=== PATIENT | male | born 1950 | race Caucasian/White ===

== ENCOUNTER 2024-05-14 19:07 | Inpatient (IN) | payer OTHER ==
[~2024-05-14 19:07] MED LIST: ALBUTEROL SO4 2.5/IPRATROPIUM 0.5 INH SOL 3 ML VIAL.NEB. NEB PRN
[2024-05-14 20:04] VITALS: BMI 28.2
[2024-05-14 21:41] LABS: BASO % 1.2 % (0-2.0); HEMATOCRIT 42.7 % (35.4-49); HEMOGLOBIN 14.4 GM/dL (11.7-16.9); LYMPH % 16.3 % (8-40); MCH 30.8 pg (25.7-33.7); MCHC 33.7 g/dl (32.0-35.9); MEAN CELL VOLUME 91.4 fl (80-96); MEAN PLT VOLUME 8.4 fl (7.5-11.1); MONO % 11.6 % (3.8-10.2); NEUT % 69.9 % (42.8-82.8); PLATELET COUNT 211 10^3/uL (134-434); RBC 4.68 M/mm3 (4.00-5.60); RDW 16.5 % (11.9-15.9); WHITE BLOOD COUNT 7.6 K/mm3 (4.0-10.0)
[2024-05-14 22:00] LABS: POTASSIUM 4.1 mmol/L (3.5-5.1)
[2024-05-14 22:03] LABS: CALCIUM 8.8 mg/dL (8.5-10.1)
[2024-05-14 22:04] LABS: ALBUMIN 3.2 g/dl (3.4-5.0); BLOOD UREA NITROGEN 11.8 mg/dL (7-18)
[2024-05-14 22:07] LABS: CREATININE 0.8 mg/dL (0.55-1.3)
[2024-05-14 22:09] LABS: BILIRUBIN,TOTAL 0.8 mg/dL (0.2-1); TOT PROT 6.9 g/dl (6.4-8.2)
[2024-05-14] MEDS ORDERED: ACETAMINOPHEN 500 MG TABLET (FP) PO PRN (23:10)
[2024-05-15 02:24] VITALS: RESP 18
[2024-05-15 06:31] LABS: HEMATOCRIT 42.5 % (35.4-49); MCH 30.1 pg (25.7-33.7); MCHC 32.8 g/dl (32.0-35.9); MEAN CELL VOLUME 91.7 fl (80-96); MEAN PLT VOLUME 8.6 fl (7.5-11.1); PLATELET COUNT 216 10^3/uL (134-434); RBC 4.63 M/mm3 (4.00-5.60); RDW 16.3 % (11.9-15.9); WHITE BLOOD COUNT 8.3 K/mm3 (4.0-10.0)
[2024-05-15 06:49] LABS: POTASSIUM 4.1 mmol/L (3.5-5.1)
[2024-05-15 06:51] LABS: CALCIUM 8.4 mg/dL (8.5-10.1)
[2024-05-15 06:52] LABS: ALBUMIN 3.2 g/dl (3.4-5.0); BLOOD UREA NITROGEN 14.2 mg/dL (7-18)
[2024-05-15 06:55] LABS: CREATININE 0.7 mg/dL (0.55-1.3)
[2024-05-15 06:56] LABS: BILIRUBIN,TOTAL 0.8 mg/dL (0.2-1)
[2024-05-15 06:57] LABS: TOT PROT 6.7 g/dl (6.4-8.2)
[2024-05-15] MEDS: RIVAROXABAN 20 MG TABLET PO SCH (09:49)
[2024-05-15] MEDS: FUROSEMIDE 40 MG TABLET (FP) PO SCH (09:49)
[2024-05-15] MEDS ORDERED: DIGOXIN 0.25 MG TABLET PO SCH (10:00)
[2024-05-15] MEDS ORDERED: ENOXAPARIN NA (PORCINE) 40 MG/0.4 ML DISP.SYRIN SQ SCH (10:00)
[2024-05-15] MEDS: FLUTICASONE/SALMETEROL (WIXELA) 100 MCG/50 MCG DISKUS IH SCH (10:51)
[2024-05-15] MEDS: rOPINIRole HCL 0.25 MG TABLET PO SCH (10:51)
[2024-05-15 15:58] VITALS: BP 110/62; PULSE 58; TEMP 98.4
[2024-05-15] MEDS ORDERED: ATORVASTATIN CA 40 MG TABLET (FP) PO SCH (22:00)
[2024-05-15] MEDS ORDERED: SENNOSIDES 8.6MG TABLET (FP) PO SCH (22:00)
== END 2024-05-15 16:25 | disposition short-term general hospital (02) | DRG 310 ==
LOC: JER 19:07 → JERBED 23:52 → J4S 05-15 00:59
PROVIDERS: ADMIT Student in an Organized Health Care Education/Training Program; ATTEND Internal Medicine
PROC: 4B02XSZ Measurement of Cardiac Pacemaker, External Approach (ICD-10-PCS; principal; 2024-05-15)
DX: T82.111A Breakdown (mechanical) of cardiac pulse generator (battery), initial encounter (principal); Z89.619 Acquired absence of unspecified leg above knee; Y83.9 Surgical procedure, unspecified as the cause of abnormal reaction of the patient, or of later complication, without mention of misadventure at the time of the procedure; I10 Essential (primary) hypertension; J44.9 Chronic obstructive pulmonary disease, unspecified; I73.9 Peripheral vascular disease, unspecified; I25.10 Atherosclerotic heart disease of native coronary artery without angina pectoris; E78.5 Hyperlipidemia, unspecified; Z95.0 Presence of cardiac pacemaker; R00.1 Bradycardia, unspecified; I48.91 Unspecified atrial fibrillation; G20.A1 Parkinson's disease without dyskinesia, without mention of fluctuations
CPT/HCPCS: 36415; 80053; 80162; 85025; 85027; 93005; 93010; 93306-TC; 99285-25